=== PATIENT | female | born 1990 | race Caucasian/White ===

== ENCOUNTER 2025-06-27 11:20 | Emergency (ER) | payer BC, SELFPAY ==
[2025-06-27 11:27] VITALS: BP 112/90
[2025-06-27 11:48] LABS: Hematocrit 36.4 % (37.0-47.0); Hemoglobin 13.2 g/dL (12.0-16.0); Mean Corp Hgb Conc. 36.3 g/dL (33.0-37.0); Mean Corpuscular Volume 91.7 fL (81.0-99.0); Nucleated Red Blood Cells % 0 %; Platelet Count 257 10^3/uL (130-400); Red Cell Dist. Width 10.8 % (11.5-14.5)
[2025-06-27 11:58] LABS: HCG, Serum Qualitative Screen Negative
[2025-06-27 12:07] LABS: COVID-19 Antigen Negative (Negative)
[2025-06-27 12:20] LABS: Troponin I < 0.012 ng/ml
[2025-06-27] MEDS: TYLENOL 650 MG PO (12:40)
[2025-06-27 13:00] LABS: ALT (SGPT) 17 U/L (0-35); AST (SGOT) 18 U/L (14-36); Albumin 4.9 g/dl (3.5-5.0); Alkaline Phosphatase 37 U/L (38-126); Blood Urea Nitrogen 10 mg/dl (7-17); Calcium 9.6 mg/dl (8.4-10.2); Carbon Dioxide 21 mmol/L (22-30); Chloride 101 mmol/L (98-107); Glucose 169 mg/dl (70-99); Potassium 3.7 mmol/L (3.5-5.1); Sodium 132 mmol/L (135-145); Total Protein 7.8 g/dl (6.3-8.2); eGFR > 60.00
[2025-06-27 13:37] VITALS: BP 105/61
--- NOTE | 2025-06-27 13:45 | ED.GENMED ---
History of Present Illness
General
Chief Complaint: Fever
Source: patient
Exam Limitations: none
Time Seen by Provider: 06/27/25 12:36
Nursing documentation reviewed up to this point in time: agreed with
History of Present Illness
History of Present Illness:
Note:
CHIEF COMPLAINT(S)
Chest pain and fever following difficulty swallowing medications.
HISTORY OF PRESENT ILLNESS
The patient is a 34-year-old female with a history of diabetes, who presents with chest pain localized to the side, accompanied by fever. The symptoms began at approximately 9 a.m. today after an incident last night where she attempted to swallow
multiple pills at once and choked. She describes the chest pain as occurring on the side and reports a fever that initially measured 99�F at home and later was documented as 102�F at the facility. The patient expresses discomfort with swallowing
pills and notes adding a new supplement to her regimen recently. After the pill incident, she started feeling progressively unwell, leading to her current consultation.
PAST MEDICAL AND SURGICAL HISTORY
The patient has a known history of diabetes and has been on metformin since 2017.
EXTERNAL RECORDS REVIEWED
The patients initial laboratory results indicate that COVID-19, influenza A and B tests were negative. An electrocardiogram (EKG) was performed, showing no signs of a heart attack, although the results were not completely normal. Troponin levels
were normal, and the blood count returned normal, although glucose and kidney function tests are pending. A chest X-ray was performed and appeared normal.
CHRONIC MEDICAL CONDITIONS SIGNIFICANTLY AFFECTING CARE
Diabetes, managed with metformin.
MEDICATIONS
The patient reports taking the following medications:
- Metformin (since 2017 for managing diabetes)
- Levothyroxine
- Other unspecified supplements
REVIEW OF SYSTEMS
- General: Fever was noted.
- Respiratory: Difficulty with swallowing and subsequent chest pain after taking multiple pills.
- Gastrointestinal: No diarrhea or vomiting.
- Skin: No rashes reported.
PHYSICAL EXAM
General: Alert, no acute distress.
Skin: Warm, dry.
Head: Normocephalic, atraumatic.
Neck: Supple, trachea midline.
Eye, Ears, Nose, Mouth, and Throat: Oral mucosa moist.
Cardiovascular: Normal peripheral perfusion, no edema.
Respiratory: Respirations are non-labored. lungs clear bilateral
Gastrointestinal: Abdomen nondistended.
Back: Normal range of motion, Normal alignment.
Musculoskeletal: Normal ROM, normal strength.
Neurological: Alert and oriented to person, place, time, and situation, No focal neurological deficit observed.
Psychiatric: Cooperative, appropriate mood & affect.
PROBLEM LIST
Acute problems:
- Chest pain after swallowing difficulty
- Fever
Chronic problems:
- Diabetes
PLAN
The patient will likely require antibiotics due to the potential aspiration risk after swallowing multiple pills. Augmentin or an alternative antibiotic such as metronidazole is being considered. Further evaluation with the pending lab results will
help in finalizing the treatment plan.
DIFFERENTIAL DIAGNOSIS
The Differential Diagnosis includes, in no particular order and is not limited to:
- Aspiration pneumonia
- Esophageal spasm
- Gastroesophageal reflux disease
- Infection or inflammatory process related to respiratory symptoms
- Cardiac causes (despite negative EKG and troponin, potential esophageal-related chest pain)
- Viral illness with atypical presentation
- Medication-induced esophagitis
- Bacterial infection secondary to a recent aspiration event
- Anxiety-related chest pain
- Musculoskeletal pain related to coughing or choking episode
CARE-UPDATE
06/27/25 - 13:42
Aspiration pneumonia suspected, initiated treatment with Augmentin. Patient COVID and influenza tests returned negative. Renal Q finding noted, though benign abdominal exam. No reported urinary symptoms. Patient assessed as stable and cleared for
discharge with instructions to follow up with primary care provider.
CARE-UPDATE
06/27/25 - 13:42
Prescribed Diflucan due to history of yeast infections following antibiotic use.
EKG
My independent EKG interpretation is:
- Normal sinus rhythm
- No signs of ischemia
- Normal ME interval
- Normal QRS duration
- Normal QT interval
- Normal axis
Disposition:
SUMMARY OF ENCOUNTER
The patient, a 34-year-old female with a history of diabetes, presented to the emergency department with chest pain localized to the side and fever following an episode of difficulty swallowing multiple pills. Her symptoms included a fever of 102�F
and increasing discomfort in swallowing pills. Tests for COVID-19 and influenza were negative, and the EKG showed no signs of a heart attack. However, aspiration pneumonia was suspected due to the symptoms following the choking incident. Augmentin
(amoxicillin and clavulanate) was prescribed as a treatment, and Diflucan (fluconazole) was also prescribed due to her history of yeast infections after antibiotics.
DISPOSITION
Discharge to follow up with primary care.
ASSESSMENT
Aspiration pneumonia with stable vital signs, not suspecting ACS, pulmonary embolism (PE), or pneumothorax.
EMERGENCY TREATMENTS ADMINISTERED
Augmentin prescribed for suspected aspiration pneumonia.
PLAN
Treat with Augmentin for aspiration pneumonia, discharge with instructions to follow up with primary care.
FOLLOW-UP INSTRUCTIONS
Please call the office immediately to schedule a follow-up visit within the next few days with a primary care provider.
MEDICATION RECONCILIATION
- Augmentin (amoxicillin and clavulanate) prescribed and sent to the pharmacy.
- Diflucan (fluconazole) prescribed and sent to the pharmacy to prevent yeast infections following antibiotic treatment.
MEDICAL DECISION MAKING
- Number and Complexity of Problems Addressed: Chronic condition affecting care - diabetes. Differential Diagnosis includes: Aspiration pneumonia, esophageal spasm, gastroesophageal reflux disease, infection or inflammatory process, cardiac causes,
viral illness, medication-induced esophagitis, bacterial infection secondary to aspiration, anxiety-related chest pain, musculoskeletal pain.
- Data:
- Category 1: Non-emergency department records reviewed include negative COVID-19 and influenza tests, EKG showing no heart attack.
- Category 3: Discussion of management with the patient regarding suspicion of aspiration pneumonia and antibiotic treatment.
- Risk: Prescription medication management and the decision to discharge the patient with follow-up plans, taking into account the complexity and risk of the patients presentation.
DIAGNOSIS
- Aspiration pneumonia (ICD-10: J69.0).
Phy Exam
Physical Exam
Physical Exam:
.
Sepsis
Sepsis Screening
Sepsis Assessment: Sepsis Ruled Out
Sepsis Screen
Sepsis Screen: Sepsis Ruled Out
Date: 06/27/25
Time: 13:54
Course
Orders/Labs/Results
Orders:
Orders
06/27/25 11:32
Electrocardiogram (*1) Urgent
Reason for Study: Chest Pain
EKG- Treatment ONCE
Test Result ONCE
CXR2 [CR Chest - 2 Views ] Urgent
Comment:
Reason For Exam: fever
06/27/25 11:39
COVID-19 Antigen Urgent
Source: Nasal Swab
Complete Blood Count/With Diff Urgent
Comprehensive Metabolic Panel Urgent
HCG, Serum Qualitative Screen Urgent
Comment: Notify provider if positive test present
Lactate Level [Lactic Acid] Urgent
Troponin I Urgent
Blood Culture Urgent
DERRICK Source: Blood/Venous
Specimen Description:
Influenza A+B Rapid Molecular Urgent
DERRICK Source: Nasal Swab
Specimen Description:
06/27/25 12:37
Acetaminophen [Tylenol] 650 mg .ROUTE .STK-MED ONE
06/27/25 12:40
Acetaminophen [Tylenol] 650 mg PO NOW STA
Abnormal Lab Results
06/27/25
11:39
RBC 3.97 L 10^6/uL
(4.20-5.40)
Hct 36.4 L %
(37.0-47.0)
MCH 33.2 H pg
(27.0-31.0)
RDW 10.8 L %
(11.5-14.5)
Absolute Neuts (auto) 8.1 H 10^3/uL
(1.4-6.5)
Absolute Lymphs (auto) 0.5 L 10^3/uL
(1.2-3.4)
Neutrophils % 86.6 H %
(42.2-75.2)
Lymphocytes % 5.1 L %
(20.5-51.1)
Sodium 132 L mmol/L
(135-145)
Carbon Dioxide 21 L mmol/L
(22-30)
Glucose 169 H mg/dl
(70-99)
Alkaline Phosphatase 37 L U/L
(38-126)
06/27/25 11:39
06/27/25 11:39
Vital Signs
Initial and Last Documented VS:
Initial Vital Signs
Temp Pulse Resp BP Pulse Ox
101.7 F H 111 16 112/90 99
06/27/25 11:27 06/27/25 11:27 06/27/25 11:27 06/27/25 11:27 06/27/25 11:27
Last Documented Vital Signs
Temp Pulse Resp BP Pulse Ox
100.0 F 101 16 105/61 99
06/27/25 13:37 06/27/25 13:37 06/27/25 13:37 06/27/25 13:37 06/27/25 13:37
*Pulse Oximetry
SaO2: 99
Oxygen Mode of Delivery: Room air
Patient hypoxic: no
*Critical Care Note
Total Time (30-74mins, 75-104mins- exclusive of procedures): Not Applicable
ED Attending Note
-
Portions of this chart may have been created with voice recognition software.� Occasional wrong word or��sound alike� substitutions may have occurred due to the inherent limitations of voice recognition software.
Discharge Plan
Departure
Patient Disposition: Home (Routine Discharge)
Date of Disposition: 06/27/25
Time of Disposition: 13:35
Patient with high blood pressure during this ER visit?: No
Condition: Good
Discharge Problem:
Aspiration pneumonia
Instructions: Aspiration pneumonia (DC)
Prescriptions:
New
amoxicillin-pot clavulanate 875-125 mg tablet
1 tab PO Q12H Qty: 14 0RF
fluconazole 150 mg tablet
150 mg PO DAILY Qty: 3 0RF
No Action
Vitamins 1 TAB tablet
Referrals:
Eulalia Dejesus PA [Family Provider, Family Practice] - Call in 1-3 days for appt
Interventions
Interventions:
*Risk Screen - Suicide Last Done: 06/27/25 11:27
*Neglect/Abuse Screening Last Done: 06/27/25 11:27
Discharge Date and Time
Print Language: OCCITAN
== END 2025-06-27 14:20 | disposition home or self-care (01) ==
LOC: EMR 11:20
PROVIDERS: Emergency Medicine; EMERGENCY PHYSICIAN Emergency Medicine; FAMILY PHYSICIAN Physician Assistant
DX: J69.0 Pneumonitis due to inhalation of food and vomit (principal); E11.9 Type 2 diabetes mellitus without complications; Z79.84 Long term (current) use of oral hypoglycemic drugs
CPT/HCPCS: 99284; 71046; 80053; 83605; 84484; 84703; 85025; 87040; 87502; 87811; 93005

== ENCOUNTER 2025-08-23 02:40 | Emergency (ER) | payer BC, SELFPAY ==
[2025-08-23 02:46] VITALS: BP 116/93
[2025-08-23 02:47] VITALS: BP 116/93
[2025-08-23 03:23] LABS: Hematocrit 34.8 % (37.0-47.0); Hemoglobin 12.9 g/dL (12.0-16.0); Mean Corp Hgb Conc. 37.1 g/dL (33.0-37.0); Mean Corpuscular Volume 92.6 fL (81.0-99.0); Nucleated Red Blood Cells % 0 %; Platelet Count 342 10^3/uL (130-400); Red Cell Dist. Width 11.5 % (11.5-14.5)
[2025-08-23 03:32] LABS: HCG, Serum Qualitative Screen Negative
[2025-08-23 03:40] LABS: ALT (SGPT) 17 U/L (0-35); AST (SGOT) 20 U/L (14-36); Albumin 4.5 g/dl (3.5-5.0); Alkaline Phosphatase 38 U/L (38-126); Blood Urea Nitrogen 12 mg/dl (7-17); Calcium 9.4 mg/dl (8.4-10.2); Carbon Dioxide 24 mmol/L (22-30); Chloride 102 mmol/L (98-107); Glucose 227 mg/dl (70-99); Lipase 97 U/L (23-300); Potassium 4.1 mmol/L (3.5-5.1); Sodium 136 mmol/L (135-145); Total Protein 7.1 g/dl (6.3-8.2); eGFR > 60.00
[2025-08-23 04:24] LABS: Urine Character Cloudy (Clear)
[2025-08-23 04:33] LABS: Urine Red Blood Cell 0-2 /HPF (0-2)
[2025-08-23 04:39] VITALS: BP 118/80; BMI 24.8
== END 2025-08-23 05:18 ==
LOC: EMR 02:40
PROVIDERS: EMERGENCY PHYSICIAN Student in an Organized Health Care Education/Training Program; FAMILY PHYSICIAN Physician Assistant
DX: R10.9 Unspecified abdominal pain (principal); Z53.21 Procedure and treatment not carried out due to patient leaving prior to being seen by health care provider
CPT/HCPCS: 80053; 81003; 81015; 83690; 84703; 85025; 87086